=== PATIENT | male | born 1955 | race Caucasian/White ===

== ENCOUNTER 2022-10-15 09:30 | Inpatient (IN) | payer OTHER ==
[2022-10-15] MEDS ORDERED: ONDANSETRON 4 MG/2 ML VIAL ONE (09:37)
[2022-10-15 10:02] VITALS: BMI 29.1
[2022-10-15 10:25] LABS: HEMATOCRIT 41.6 % (35.4-49); HEMOGLOBIN 13.7 G/dL (11.7-16.9); MCH 27.2 pg (25.7-33.7); MCHC 32.9 g/dl (32.0-35.9); MEAN CELL VOLUME 82.6 fl (80-96); MEAN PLT VOLUME 7.7 fl (7.5-11.1); PLATELET COUNT 250.3 10^3/uL (134-434); RBC 5.04 10^6/uL (4.00-5.60); WHITE BLOOD COUNT 14.7 10^3/uL (4.0-10.8)
[2022-10-15 11:16] LABS: ALBUMIN 3.9 g/dl (3.4-5.0); BLOOD UREA NITROGEN 26.8 mg/dl (7-18); CALCIUM 9.2 mg/dl (8.5-10.1); CREATININE 1.5 mg/dl (0.6-1.3); POTASSIUM 5.7 mmol/L (3.5-5.1); SGOT/AST 13.8 U/L (15-37); SGPT/ALT 11.6 U/L (7-52); TOT PROT 6.1 g/dl (6.4-8.2)
[2022-10-15] MEDS ORDERED: SODIUM CHLORIDE 0.9% 1000 ML INFUS.BAG IV ONE (11:31)
[2022-10-15 12:09] LABS: EPITHELIAL CELLS MODERATE /hpf
[2022-10-15] MEDS ORDERED: CEFTRIAXONE 1,000 MG in DEXTROSE 5%-WATER - 50 ML IVPB ONE (12:47)
[2022-10-15] MEDS ORDERED: DEXTROSE 50%-WATER - 25 GM/50 ML VIAL IVPUSH ONE (12:48)
[2022-10-15] MEDS ORDERED: INSULIN REGULAR HUMAN 100 UNITS/ML *VIAL IVPUSH ONE (12:48)
[2022-10-15 12:59] LABS: BILIRUBIN,TOTAL 0.3 mg/dL (0.2-1)
[2022-10-15] MEDS ORDERED: cefTRIAXone SODIUM 1 GM VIAL ONE (13:21)
[2022-10-15] MEDS ORDERED: DEXTROSE 50%-WATER 25 GM/50 ML DISP.SYRIN ONE (13:21)
[2022-10-15] MEDS ORDERED: INSULIN REGULAR HUMAN 100 UNITS/ML *VIAL ONE (13:23)
[2022-10-15] MEDS ORDERED: REFRIGERATED ANITBIOTICS ONE (14:35)
[2022-10-16] MEDS ORDERED: ACETAMINOPHEN 1000 MG/100 ML BAG IVPB ONE (01:49)
[2022-10-16] MEDS: MELATONIN 5 MG TABLETS PO PRN ×2 (02:40→21:58)
[2022-10-16] MEDS: PHENAZOPYRIDINE HCL 100 MG TABLET (FP) PO SCH ×4 (02:40→21:58)
[2022-10-16] MEDS ORDERED: LIDOCAINE HCL 2% JELLY 10 ML CARTRIDGE UR ONE (03:36)
[2022-10-16] MEDS ORDERED: SODIUM CHLORIDE 1,000 ML IV SCH (04:15)
[2022-10-16] MEDS ORDERED: KETOROLAC TROMETHAMINE 30 MG/1 ML VIAL IM ONE (06:18)
[2022-10-16] MEDS: TAMSULOSIN HCL 0.4 MG CAP PO SCH (07:45)
[2022-10-16 10:26] LABS: ALBUMIN 3.8 g/dl (3.4-5.0); CREATININE 1.3 mg/dl (0.6-1.3); POTASSIUM 4.3 mmol/L (3.5-5.1); SGOT/AST 17.3 U/L (15-37); SGPT/ALT 14.1 U/L (7-52)
[2022-10-16] MEDS: FINASTERIDE 5 MG TABLET (FP) PO SCH (11:22)
[2022-10-16] MEDS: CEFTRIAXONE 1 GM in DEXTROSE 5%-WATER - 50 ML IVPB SCH (11:23)
[2022-10-16 11:40] LABS: HEMATOCRIT 37.6 % (35.4-49); HEMOGLOBIN 12.1 GM/dL (11.7-16.9); MCH 25.8 pg (25.7-33.7); MCHC 32.3 g/dl (32.0-35.9); MEAN CELL VOLUME 80.1 fl (80-96); MEAN PLT VOLUME 7.2 fl (7.5-11.1); PLATELET COUNT 254 10^3/uL (134-434); RBC 4.69 M/mm3 (4.00-5.60); WHITE BLOOD COUNT 12.2 K/mm3 (4.0-10.0)
[2022-10-16 11:56] LABS: BILIRUBIN,TOTAL 0.6 mg/dL (0.2-1)
[2022-10-16 12:17] LABS: ANISOCYTOSIS 0; HELMET CELLS 0; HOWELL-JOLLY BODIES 0; MACROCYTOSIS 0; OVALOCYTE 0; ROULEAU 0; SICKELED CELLS 0; TARGET CELLS 0; TEAR DROP CELLS 0; TOXIC GRANULATION 0
[2022-10-16] MEDS ORDERED: ACETAMINOPHEN 1000 MG/100 ML BAG IVPB PRN (17:00)
[2022-10-16 18:32] VITALS: RESP 18
[2022-10-16] MEDS ORDERED: MAG HYDROX/AL HYDROX/SIMETH 30 ML UNIT-DOSE CUP PO ONE (21:49)
[2022-10-17 08:07] LABS: ALBUMIN 3.4 g/dl (3.4-5.0); CALCIUM 8.2 mg/dl (8.5-10.1); POTASSIUM 4.1 mmol/L (3.5-5.1); SGOT/AST 15.1 U/L (15-37); SGPT/ALT 13.4 U/L (7-52); TOT PROT 5.2 g/dl (6.4-8.2)
[2022-10-17] MEDS: CEFTRIAXONE 1 GM in DEXTROSE 5%-WATER - 50 ML IVPB SCH (09:53)
[2022-10-17] MEDS: TAMSULOSIN HCL 0.4 MG CAP PO SCH (09:54)
[2022-10-17] MEDS: PHENAZOPYRIDINE HCL 100 MG TABLET (FP) PO SCH (09:56)
[2022-10-17] MEDS: FINASTERIDE 5 MG TABLET (FP) PO SCH (09:57)
[2022-10-17] MEDS ORDERED: FAMOTIDINE 20 MG TABLET PO SCH (10:00)
[2022-10-17 10:25] LABS: BILIRUBIN,TOTAL 0.6 mg/dL (0.2-1)
[2022-10-17 10:44] VITALS: BP 117/63; PULSE 75; TEMP 98.1
[2022-10-17 11:32] LABS: BASO % 1.2 % (0-2.0); HEMATOCRIT 34.8 % (35.4-49); HEMOGLOBIN 11.4 GM/dL (11.7-16.9); LYMPH % 24.4 % (8-40); MCH 26.2 pg (25.7-33.7); MCHC 32.9 g/dl (32.0-35.9); MEAN CELL VOLUME 79.6 fl (80-96); MEAN PLT VOLUME 6.8 fl (7.5-11.1); MONO % 9.2 % (3.8-10.2); NEUT % 60.2 % (42.8-82.8); PLATELET COUNT 239 10^3/uL (134-434); RBC 4.37 M/mm3 (4.00-5.60); RDW 16.1 % (11.9-15.9); WHITE BLOOD COUNT 7.7 K/mm3 (4.0-10.0)
== END 2022-10-17 12:25 | disposition home or self-care (01) ==
LOC: FER 09:30 → FM/S 13:51 → INTOOBSV 13:51 → OBSVTOIN 16:12 → UNDODISOB 10-17 12:25 → UNDODISIN 10-17 12:25
PROVIDERS: ATTEND Internal Medicine
PROC: 3E033NZ Introduction of Analgesics, Hypnotics, Sedatives into Peripheral Vein, Percutaneous Approach (ICD-10-PCS; principal; 2022-10-15)
PROC: 3E03329 Introduction of Other Anti-infective into Peripheral Vein, Percutaneous Approach (ICD-10-PCS; 2022-10-15)
PROC: 3E0337Z Introduction of Electrolytic and Water Balance Substance into Peripheral Vein, Percutaneous Approach (ICD-10-PCS; 2022-10-15)
PROC: 3E013VG Introduction of Insulin into Subcutaneous Tissue, Percutaneous Approach (ICD-10-PCS; 2022-10-15)
PROC: 3E0233Z Introduction of Anti-inflammatory into Muscle, Percutaneous Approach (ICD-10-PCS; 2022-10-15)
DX: N39.0 Urinary tract infection, site not specified (principal); N17.9 Acute kidney failure, unspecified; E87.5 Hyperkalemia; N40.0 Benign prostatic hyperplasia without lower urinary tract symptoms; N20.0 Calculus of kidney; E78.5 Hyperlipidemia, unspecified; E66.9 Obesity, unspecified; Z96.0 Presence of urogenital implants; Z88.0 Allergy status to penicillin; Z91.018 Allergy to other foods; R94.4 Abnormal results of kidney function studies; Z87.442 Personal history of urinary calculi
CPT/HCPCS: 0241U-QW; 36415; 71045-TC-FY; 80053; 81003; 81015; 82962; 84484; 85025; 85027; 87086; 93005; 99285-25; G0378